=== PATIENT | female | born 1960 | race African-American/Black ===

== ENCOUNTER 2018-10-29 08:50 | Emergency (ER) | payer BC ==
[2018-10-29 09:02] VITALS: BP 155/76
[2018-10-29] MEDS ORDERED: ONDANSETRON 4 MG TAB.RAPDIS PO ONE (09:34)
--- NOTE | 2018-10-29 09:37 | ER Document Report ---
ED Medical Screen (RME) - General Chief Complaint: Dizziness Stated Complaint: DIZZINESS,VOMITING,NAUSEA Time Seen by Provider: 10/29/18 09:28 Mode of Arrival: Ambulatory Information source: Patient Notes: Patient presents the emergency department with complaints of dizziness upon waking. She reports that when she woke up she turned over and started spinning. She reports she felt the pain in her right eye and had trouble focusing. She reports she had a lay there for up to 15 minutes finally went to the bathroom came back to the bed and became very nauseated so went back to the bathroom and vomited. She reports she vomited bright red blood. No complaints of abdominal pain. Also complains of headache but reports the abdominal pain is worse. Reports dizziness is almost gone. Patient is speaking in clear voice no obvious neuro deficits. Ambulates without any problems clear voice answers all questions appropriately. Denies history of GI bleed. Reports history of hypertension. I have greeted and performed a rapid initial assessment of this patient. A comprehensive ED assessment and evaluation of the patient, analysis of test results and completion of the medical decision making process will be conducted by additional ED providers. Dictation of this chart was performed using voice recognition software; therefore, there may be some unintended grammatical errors. TRAVEL OUTSIDE OF THE [place] IN LAST 30 DAYS: No - Related Data Allergies/Adverse Reactions: No Known Allergies Allergy (Verified 10/29/18 08:58) Past Medical History - Social History Chew tobacco use (# tins/day): No Frequency of alcohol use: None Drug Abuse: None Renal/ Medical History: Denies: Hx Peritoneal Dialysis Physical Exam - Vital signs Vitals: Temp Pulse Resp 98.3 F 79 18 10/29/18 08:59 10/29/18 08:59 10/29/18 08:59 Course - Vital Signs Vital signs: Temp Pulse Resp BP Pulse Ox 98.3 F 79 18 155/76 H 99 10/29/18 08:59 10/29/18 08:59 10/29/18 08:59 10/29/18 09:01 10/29/18 09:01
[2018-10-29 10:20] LABS: ABSOLUTE EOSINOPHILS # (AUTO) 0.1 10^3/uL (0.0-0.6); ABSOLUTE LYMPHOCYTES (AUTO) 1.8 10^3/uL (0.5-4.7); ABSOLUTE MONOCYTES (AUTO) 0.4 10^3/uL (0.1-1.4); ABSOLUTE NEUT (AUTO) 6.1 10^3/uL (1.7-8.2); BASOPHILS % (AUTO) 0.4 % (0-2); HEMATOCRIT 37.9 % (36.0-47.0); HEMOGLOBIN 12.8 g/dL (12.0-15.5); LYMPHOCYTES % (AUTO) 21.9 % (13-45); MEAN CORPUSCULAR HEMOGLOBIN 30.7 pg (27.0-33.4); MEAN CORPUSCULAR HGB CONC 33.7 g/dL (32.0-36.0); MEAN CORPUSCULAR VOLUME 91 fl (80-97); MONOCYTES % (AUTO) 4.3 % (3-13); PLATELET COUNT 232 10^3/uL (150-450); RED BLOOD COUNT 4.16 10^6/uL (3.72-5.28); RED CELL DISTRIBUTION WIDTH 13.6 % (11.5-14.0); SEGMENTED NEUTROPHILS % (AUTO) 72.4 % (42-78); TOTAL CELLS COUNTED % (AUTO) 100 %; WHITE BLOOD COUNT 8.4 10^3/uL (4.0-10.5)
[2018-10-29 10:27] LABS: AMORPHOUS SEDIMENT,URINE TRACE /HPF; APPEARANCE,URINE CLOUDY; BILIRUBIN,URINE NEGATIVE (NEGATIVE); COLOR,URINE YELLOW; GLUCOSE, URINE NEGATIVE (NEGATIVE); KETONES,URINE NEGATIVE (NEGATIVE); LEUKOCYTE ESTERASE,URINE TRACE (NEGATIVE); NITRITE,URINE NEGATIVE (NEGATIVE); PROTEIN,URINE NEGATIVE (NEGATIVE); URINE SPECIFIC GRAVITY 1.011; UROBILINOGEN,URINE NEGATIVE mg/dL (<2.0)
[2018-10-29 10:36] LABS: ALANINE AMINOTRANSFERASE 25 U/L (9-52); ALBUMIN 4.2 g/dL (3.5-5.0); ALKALINE PHOSPHATASE 92 U/L (38-126); ANION GAP 8 (5-19); ASPARTATE AMINO TRANSFERASE 19 U/L (14-36); BILIRUBIN,DIRECT 0.2 mg/dL (0.0-0.4); BILIRUBIN,TOTAL 0.4 mg/dL (0.2-1.3); BLOOD UREA NITROGEN 16 mg/dL (7-20); CALCIUM 10.1 mg/dL (8.4-10.2); CARBON DIOXIDE 32 mmol/L (22-30); CHLORIDE 103 mmol/L (98-107); GLUCOSE 148 mg/dL (75-110); POTASSIUM 4.3 mmol/L (3.6-5.0); SODIUM 142.8 mmol/L (137-145); TOTAL PROTEIN 7.3 g/dL (6.3-8.2)
--- NOTE | 2018-10-29 13:56 | EKG REPORT ---
SEVERITY:- NORMAL ECG - SINUS RHYTHM NONSPECIFIC ST-T CHANGES- INFERIOR LEADS : Confirmed by: Antwon Camacho MD 29-Oct-2018 13:55:39
--- NOTE | 2018-10-29 14:29 | ER Document Report ---
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 She states that she woke up and turned over and started spinning with a sensation of the room spinning around her, she had a right eye pain which has been intermittent for the past 6 months but then had the transient vision loss which is the first time this is happened. She has regained her vision. She laid in bed and then went to the bathroom after becoming nauseated and vomited she states it was bright red blood but after further interview she states that it was clear spit with some red streaks in it. She denies shortness of breath or rapid heart rate, denies any unilateral leg swelling or unilateral leg pain, states that she still does have a headache and has pain in the supraorbital area of the right eye that extends into the temporal region and the right side of her head. No urinary symptoms. No other complaints TRAVEL OUTSIDE OF THE [place] IN LAST 30 DAYS: No - Related Data Allergies/Adverse Reactions: No Known Allergies Allergy (Verified 10/29/18 08:58) Past Medical History - General Information source: Patient - Social History Smoking Status: Never Smoker Chew tobacco use (# tins/day): No Frequency of alcohol use: None Drug Abuse: None Family History: None Patient has suicidal ideation: No Patient has homicidal ideation: No Renal/ Medical History: Denies: Hx Peritoneal Dialysis Review of Systems - Review of Systems Constitutional: See HPI EENT: See HPI Cardiovascular: See HPI Respiratory: See HPI Gastrointestinal: See HPI Genitourinary: See HPI Female Genitourinary: No symptoms reported Musculoskeletal: No symptoms reported Skin: No symptoms reported Hematologic/Lymphatic: No symptoms reported Neurological/Psychological: See HPI Physical Exam - Vital signs Vitals: Temp Pulse Resp 98.3 F 79 18 10/29/18 08:59 10/29/18 08:59 10/29/18 08:59 - Notes Notes: PHYSICAL EXAMINATION: Reviewed vital signs and charting by RN GENERAL: Alert, interacts well. No acute distress. HEAD: Normocephalic, atraumatic, tenderness over the right temporal area EYES: Pupils equal, round, and reactive to light. Extraocular movements intact without pain of movement, no current visual deficits, no blurred visio, ENT: Oral mucosa moist, tongue midline. NECK: Full range of motion. Supple. Trachea midline. LUNGS: Clear to auscultation bilaterally, no wheezes, rales, or rhonchi. No res piratory distress. HEART: Regular rate and rhythm. No murmur ABDOMEN: soft, non-tender. No distention. Bowel sounds present EXTREMITIES: Moves all 4 extremities spontaneously. No edema, No cyanosis. PSYCH: Normal affect, normal mood. SKIN: Warm, dry, normal turgor. No rashes or lesions noted. Course - Re-evaluation Re-evalutation: 10/29/18 14:26 Overall well-appearing in no acute distress. I am concerned for potential temporal arteritis based on age, tenderness over the temporal area and transient vision loss. Also with her remote history of PEs I cannot rule out amaurosis fugax and I am going to get a d-dimer because I do not want to move right to CTA chest. I will call ophthalmology on-call to get a recommendation for imaging. 10/29/18 15:25 ESR still pending. D-dimer 0.59 and based on age-adjusted cut off patient is considered low risk for VTE. Wells score 1.5. ESR pending. 10/29/18 17:[address] Garibay, fire investigation lieutenant on-call. His recommendation is to get a CRP to finish the inflammation work-up. He wants to see her in the office tomorrow at 9 AM to dilate the eye and a better exam to assess for amaurosis fugax. Also, I have arranged a follow-up with her primary care Dr. Cortes tomorrow at 3 PM to initiate the need for a hypercoagulability work-up. Patient then started complaining of left calf pain and swelling so I obtained a Doppler and she has a peroneal vein DVT. Nonetheless, I gave her Lovenox 1 time 1 mg/kg dosing. At this time patient is stable for discharge and understands what needs to be done. - Vital Signs Vital signs: Temp Pulse Resp BP Pulse Ox 98.3 F 79 18 155/76 H 99 10/29/18 08:59 10/29/18 08:59 10/29/18 08:59 10/29/18 09:01 10/29/18 09:01 - Laboratory Result Diagrams: 10/29/18 09:48 10/29/18 09:48 Laboratory results interpreted by me: 10/29/18 10/29/18 10/29/18 09:48 09:48 09:48 ESR D-Dimer Carbon Dioxide 32 H Glucose 148 H C-Reactive Protein 16.5 H Ur Leukocyte Esterase TRACE H 10/29/18 10/29/18 14:37 14:37 ESR 41 H D-Dimer 0.59 H Carbon Dioxide Glucose C-Reactive Protein Ur Leukocyte Esterase Discharge - Discharge Clinical Impression: Vision changes, Pain, eye, right DVT (deep venous thrombosis) Qualifiers: DVT location: lower extremity Affected thrombotic vein of extremity: other lower extremity vein Chronicity: unspecified Laterality: left Qualified Code(s): I82.492 - Acute embolism and thrombosis of other specified deep vein of left lower extremity Condition: Good Disposition: HOME, SELF-CARE Additional Instructions: You were seen in the emergency department this afternoon for eye pain and vision changes, and you were ultimately diagnosed with a lower extremity DVT. I have set up a follow-up for you with ophthalmology tomorrow at 9:00 in the morning. Also, I have set up a follow-up appointment with your primary care provider, Dr. Cortes, at 3:00 tomorrow. It is critically important that you make these appointments because we need to make sure that you are not at risk of a condition called amaurosis fugax and you will need a more thorough work-up to include an echocardiogram, carotid Dopplers, and a hypercoagulability work-up. If you develop complete vision loss, facial droop or weakness or paralysis in one or more of your extremities, severe worsening left leg pain, acute shortness of breath or chest pain please immediately return to the emergency department for reevaluation. Referrals: NIRAJ CORTES PA-C [Primary Care Provider] - 10/30/18 3:00 pm FERMÍN GARIBAY MD [ACTIVE STAFF] - 10/30/18 9:00 am
[2018-10-29] MEDS ORDERED: ENOXAPARIN SODIUM INJ 120 MG/0.8 ML DISP.SYRIN SUBCUT ONE (17:27)
--- NOTE | 2018-10-29 17:27 | VASCULAR PRELIM REPORT ---
Provider Note Provider Note: This study is positive for deep venous thrombosis, acute in the left posterior tibial vein. Otherwise normal in the right common femoral and the rest of the left lower extremity. This study was called into the ER providers at about 1730 hrs.
--- NOTE | 2018-10-30 13:33 | XCELERA REPORT ---
[address] [facility] [address] Lower Extremity Venous Evaluation Procedure: Color flow and duplex imaging of the veins of the right lower extremity as well as the right Common Femoral vein. Left Sided Venous Evaluation Difficulty seeing the Posterior tribunal, Greater and Short Saphenous veins, due to tissue edema. Normal vessel filling wall to wall, compression and augmentation as well as Colour flow down to the infrageniculate veins. In visualized veins. Interpretation Summary No duplex evidence of DVT or obstruction in the left lower extremity nor in the right Common Femoral vein. Challenging study due to tissue swelling. Name: KRYSTLE GÓMEZ Age: 58 yrs Gender: Female : 1960 Patient Status: Emergency Patient Location: ER Study Date: 10/29/2018 04:28 PM Reason For Study: LLE swelling and painq Ordering Physician: ALICE ALTMAN Performed By: Caroline Larkin : ALICE ALTMAN > Frank Liu
== END 2018-10-29 18:11 | disposition home or self-care (01) ==
LOC: ER 08:50
DX: I82.492 Acute embolism and thrombosis of other specified deep vein of left lower extremity (principal); H57.11 Ocular pain, right eye; R42 Dizziness and giddiness; R11.2 Nausea with vomiting, unspecified; I10 Essential (primary) hypertension; Z90.710 Acquired absence of both cervix and uterus; Z86.711 Personal history of pulmonary embolism
CPT/HCPCS: 93005; 99284; 96372; 36415; 87086; 85025; 85652; 86140; 80053; 81001; 85379; 93971 ×2; 93010; S0119; J1650

== ENCOUNTER 2018-11-07 02:19 | Emergency (ER) | payer BC ==
[2018-11-07 06:39] LABS: ABSOLUTE BASOPHILS # (AUTO) 0.1 10^3/uL (0.0-0.2); ABSOLUTE EOSINOPHILS # (AUTO) 0.1 10^3/uL (0.0-0.6); ABSOLUTE LYMPHOCYTES (AUTO) 2.5 10^3/uL (0.5-4.7); ABSOLUTE MONOCYTES (AUTO) 0.6 10^3/uL (0.1-1.4); ABSOLUTE NEUT (AUTO) 6.4 10^3/uL (1.7-8.2); EOSINOPHILS % (AUTO) 1.1 % (0-6); HEMATOCRIT 35.9 % (36.0-47.0); HEMOGLOBIN 12.1 g/dL (12.0-15.5); LYMPHOCYTES % (AUTO) 25.9 % (13-45); MEAN CORPUSCULAR HEMOGLOBIN 30.6 pg (27.0-33.4); MEAN CORPUSCULAR HGB CONC 33.7 g/dL (32.0-36.0); MEAN CORPUSCULAR VOLUME 91 fl (80-97); PLATELET COUNT 214 10^3/uL (150-450); RED BLOOD COUNT 3.96 10^6/uL (3.72-5.28); RED CELL DISTRIBUTION WIDTH 13.6 % (11.5-14.0); TOTAL CELLS COUNTED % (AUTO) 100 %; WHITE BLOOD COUNT 9.7 10^3/uL (4.0-10.5)
[2018-11-07 06:56] LABS: ALANINE AMINOTRANSFERASE 25 U/L (9-52); ALBUMIN 4.1 g/dL (3.5-5.0); ALKALINE PHOSPHATASE 89 U/L (38-126); ANION GAP 6 (5-19); ASPARTATE AMINO TRANSFERASE 16 U/L (14-36); BILIRUBIN,DIRECT 0.2 mg/dL (0.0-0.4); BILIRUBIN,TOTAL 0.5 mg/dL (0.2-1.3); BLOOD UREA NITROGEN 15 mg/dL (7-20); CARBON DIOXIDE 33 mmol/L (22-30); CHLORIDE 101 mmol/L (98-107); GLUCOSE 145 mg/dL (75-110); POTASSIUM 4.2 mmol/L (3.6-5.0); TOTAL PROTEIN 7.1 g/dL (6.3-8.2)
--- NOTE | 2018-11-07 07:12 | RADIOLOGY REPORT (SQ) ---
EXAM: CT head without IV contrast CLINICAL DATA: Headache with nausea TECHNICAL DATA: Multiple axial CT images of the brain were performed followed by sagittal and coronal reconstructed images. The CT study is performed according to ALARA (as low as reasonably achievable) or ALARA/IMAGE GENTLY, with automatic adjustment of mA and/or kV according to patient size. Performed on: 11/07/2018 at 6:37 AM Comparisons: None. FINDINGS: There is no evidence of mass, acute mass effect or midline shift. There are no acute extra-axial fluid collections. There is no evidence of acute intracranial hemorrhage. The cerebral sulci and ventricles are normal in size and configuration. There are no focal abnormal areas of increased or decreased attenuation There is mild mucosal thickening of the paranasal sinuses. The mastoid air cells are clear. The orbital contents are grossly unremarkable. No acute osseous abnormalities are identified. No focal soft tissue abnormalities are identified. IMPRESSION: There is no evidence of acute intracranial pathology.
--- NOTE | 2018-11-07 07:38 | ER Document Report ---
ED General - General Chief Complaint: Headache Stated Complaint: HEADACHE Time Seen by Provider: 11/07/18 05:43 Primary Care Provider: NIRAJ ISLAS PA-C [Primary Care Provider] - Follow up in 3-5 days Notes: Patient is a 58-year-old female who presents emergency department with a chief complaint of dizziness, headache, and nausea. She states that her symptoms started 9 days ago, and she states that she feels like her dizziness never went away. She was also diagnosed with a DVT and was started on Xarelto. She describes her headache as a squeezing feeling in her head and her neck. States that it feels like a vice packaging design engineer on her head. She did use Zofran, but had to get switched to Phenergan after she saw her primary care provider. Patient denies any weakness, numbness, tingling, facial droop, or any other neurological symptoms at this time. TRAVEL OUTSIDE OF THE [place] IN LAST 30 DAYS: No - Related Data Allergies/Adverse Reactions: No Known Allergies Allergy (Verified 10/29/18 08:58) Past Medical History - Social History Smoking Status: Never Smoker Chew tobacco use (# tins/day): No Frequency of alcohol use: None Drug Abuse: None Family History: None Patient has suicidal ideation: No Patient has homicidal ideation: No - Past Medical History Cardiac Medical History: Reports: Hx Hypertension Renal/ Medical History: Denies: Hx Peritoneal Dialysis Past Surgical History: Reports: Hx Section, Hx Hysterectomy Review of Systems - Review of Systems Notes: REVIEW OF SYSTEMS: CONSTITUTIONAL : Denies recent illness. Denies recent unintentional weight loss. Denies fever, chills, or sweats. EENT: Denies eye, ear, throat, or mouth pain, discharge, or symptoms. Denies nasal or sinus congestion. CARDIOVASCULAR: Denies chest pain. RESPIRATORY: Denies shortness of breath, cough, congestion, difficulty breathing, or wheezing. GASTROINTESTINAL: See HPI GENITOURINARY: Denies difficulty urinating, burning, blood in urine, urgency or frequency. MUSCULOSKELETAL: Denies neck and back pain. Denies joint pain or swelling. SKIN: Denies rash, itchiness, or lesions HEMATOLOGIC : Denies easy bruising or bleeding. LYMPHATIC: Denies swollen, painful, enlarged glands. NEUROLOGICAL: See HPI PSYCHIATRIC: Denies stress, anxiety, alteration in sleep patterns, or depression. All other systems reviewed and negative. Physical Exam - Vital signs Vitals: Temp Pulse Resp BP Pulse Ox 98.3 F 81 16 149/93 H 94 11/07/18 02:27 11/07/18 02:27 11/07/18 02:27 11/07/18 02:27 11/07/18 02:27 - Notes Notes: PHYSICAL EXAMINATION: GENERAL: Appears well, healthy, well-nourished, no acute distress. HEAD: Normocephalic, atraumatic. EYES: PERRL, conjunctiva normal, all extraocular movements intact, sclera nonicteric ENT: Moist mucous membranes. NECK: Supple, no noticeable swelling, redness, rash. Normal range of motion. LUNGS: Equal breath sounds bilaterally and clear to auscultation. No wheezes rales or rhonchi. CARDIOVASCULAR: S1-S2, regular rate, regular rhythm. Radial pulses 2+, normal. ABDOMEN: Normoactive bowel sounds. Soft, nontender, no guarding, no rebound tenderness, and no masses palpated. EXTREMITIES: Normal strength and range of motion, no pitting or edema. No cyanosis. NEUROLOGICAL: Moves all extremities upon command. Strength 5/5 in all extremities. PSYCH: Normal mood, normal affect. SKIN: Warm, dry. No rash, lesions, ulcerations noted. Normal skin turgor. Course - Re-evaluation Re-evalutation: 11/07/18 07:[address] of the head is negative for any intracranial bleed, mass, or any other acute etiology at this time. She moves all extremities with no problems. The Ellie's maneuver was done. The patient will be evaluated in about 20 minutes. CBC and CMP are normal. 11/07/18 08:01 Patient states that she does feel better after the Ellie's maneuver. She will follow-up with her primary care provider. Follow-up precautions were given. She already has Phenergan, therefore she will not receive Phenergan here in the emergency department. Verbal discharge instructions were given to the patient. They verbalized understanding. They are stable for discharge. - Vital Signs Vital signs: Temp Pulse Resp BP Pulse Ox 97.9 F 81 18 139/79 H 98 11/07/18 08:38 11/07/18 08:38 11/07/18 08:38 11/07/18 08:38 11/07/18 08:38 - Laboratory Result Diagrams: 11/07/18 06:30 11/07/18 06:30 Laboratory results interpreted by me: 11/07/18 11/07/18 06:30 06:30 Hct 35.9 L Carbon Dioxide 33 H Glucose 145 H Discharge - Discharge Clinical Impression: Nausea, Abdominal discomfort Benign paroxysmal positional vertigo Qualifiers: Laterality: unspecified laterality Qualified Code(s): H81.10 - Benign paroxysmal vertigo, unspecified ear Condition: Stable Disposition: HOME, SELF-CARE Additional Instructions: You were seen today in the emergency department for a headache, dizziness, and nausea. The Ellie maneuver was done to help with your dizziness. Please follow-up with your primary care provider in regards to this visit. Your CT of the head and labs were all normal. You can continue to take your promethazine a s needed for any nausea. You can take Tylenol 1000 mg every 6 hours as needed for your headache. If you have worsening symptoms, pass out, or have any symptoms that are worrisome to you, please return to the emergency department. Forms: Return to Work Referrals: NIRAJ ISLAS PA-C [Primary Care Provider] - Follow up in 3-5 days
[2018-11-07] MEDS ORDERED: ACETAMINOPHEN 325 MG TABLET PO ONE (08:13)
[2018-11-07 08:42] VITALS: BP 139/79
== END 2018-11-07 08:43 | disposition home or self-care (01) ==
LOC: ER 02:19
DX: H81.10 Benign paroxysmal vertigo, unspecified ear (principal); R11.0 Nausea; R10.9 Unspecified abdominal pain; R51 Headache; Z86.718 Personal history of other venous thrombosis and embolism; Z79.01 Long term (current) use of anticoagulants; Z79.899 Other long term (current) drug therapy; I10 Essential (primary) hypertension
CPT/HCPCS: 36415; 70450; 80053; 85025; 99284